=== PATIENT | female | born 1980 | race Caucasian/White ===

== ENCOUNTER 2017-07-18 20:19 | Emergency (ER) | payer MEDICAID ==
[~2017-07-18] VITALS: Ht 162.6 cm; Wt 98.0 kg
[~2017-07-18 20:19] MED LIST: ACET325T45 PO; ACET500C5 PO; AUG875 PO; BENZ100C70 PO; CARI350T PO; FLUT16SP17 NASAL; IBUP-1542 PO; IBUP800T25 PO; LORA-441 PO; LORA5SOL74 PO; ONDA4TAB8 PO; OSLT75C PO; PROM6.25 PO; SODI44SP11 NASAL; UDROBDM PO; VIC
[2017-07-18 20:22] VITALS: Ht 162.6 cm; Wt 98.0 kg
[2017-07-18] MEDS ORDERED: LIDOCAINE/MYLANTA 40 ML BTL PO STA (21:05)
[2017-07-18] MEDS ORDERED: ONDANSETRON (ODT) 4 MG TAB ODT STA (21:05)
[2017-07-18] MEDS ORDERED: FAMOTIDINE 20 MG TAB PO STA (21:05)
[2017-07-18 21:53] LABS: BASOPHILS % 0.2 % (0.0-2.0); EOSINOPHILS # 0.1 10^3/ul (0.0-0.5); EOSINOPHILS % 1.1 % (0.0-7.0); HEMATOCRIT 38.4 % (37.0-47.0); HEMOGLOBIN 12.8 g/dl (12.0-16.0); LYMPHOCYTES # 2.6 10^3/ul (0.8-2.9); LYMPHOCYTES % 31.9 % (15.0-51.0); MEAN CORPUSCULAR HEMOGLOBIN 29.7 pg (29.0-33.0); MEAN CORPUSCULAR HGB CONC 33.3 g/dl (32.0-37.0); MEAN CORPUSCULAR VOLUME 89.1 fl (82.0-101.0); MEAN PLATELET VOLUME 10.5 fl (7.4-10.4); MONOCYTE # 0.7 10^3/ul (0.3-0.9); NEUTROPHILS % 57.6 % (39.0-77.0); PLATELET COUNT 303 10^3/UL (140-415); RED BLOOD COUNT 4.31 10^6/ul (4.20-5.40); WHITE BLOOD COUNT 8.2 10^3/ul (4.8-10.8)
[2017-07-18 22:28] LABS: ALBUMIN 4.3 g/dl (3.3-4.9); ALBUMIN/GLOBULIN RATIO 1.43; BILIRUBIN,INDIRECT 0.6 mg/dl (0-1.1); BILIRUBIN,TOTAL 0.6 mg/dl (0.2-1.3); CREATININE 0.92 mg/dl (0.44-1.00); POTASSIUM 3.8 mmol/L (3.5-5.1); TOTAL PROTEIN 7.3 g/dl (6.1-8.1)
[2017-07-19 00:21] LABS: URINE BLOOD (Dip) POC 1+ (NEGATIVE)
[2017-07-19] MEDS ORDERED: FAMO-96 PO (00:51)
[2017-07-19] MEDS ORDERED: ONDA4TAB8 PO (01:02)
[2017-07-19 01:20] VITALS: BP 99/58; PULSE 70; RESP 15; TEMP 97.6
--- NOTE | 2017-07-19 21:19 | ERD ---
ER Documentation Chief Complaint Date/Time DATE: 07/19/17 TIME: 21:13 Chief Complaint upper abd painx 4 days, diarrhea, headache HPI This is a 36-year-old female presenting to emergency department with epigastric and right upper quadrant abdominal pain 4 days. Patient rates pain 6/10 and states pain is mainly in the epigastric region and right upper quadrant. Pain is nonradiating. No lower abdominal pain. No dysuria, hematuria, urinary frequency or urgency. Patient states she has had nausea however no vomiting. Patient's had mild diarrhea since yesterday. No black or tarry stools. No melena. No aggravating or relieving factors. Patient did not take any medications at home. Last menstrual period July 02, 2017. No past medical history. Patient has history of cholecystectomy and tonsillectomy ROS All systems reviewed and are negative except as per history of present illness. Medications Home Meds Active Scripts Ondansetron Hcl* (Zofran*) 4 Mg Tablet, 4 MG PO Q6H for NAUSEA AND/OR VOMITING, #10 TAB Prov:NAFISA GUERRERO NP 07/19/17 Famotidine* (Pepcid*) 20 Mg Tablet, 20 MG PO BID for 4 Days, TAB Prov:NAFISA GUERRERO NP 07/19/17 Ondansetron Hcl* (Zofran*) 4 Mg Tablet, 4 MG PO Q6H for NAUSEA AND/OR VOMITING, #30 TAB Prov:MARILIN MORALES PA-C 07/04/16 Acetaminophen* (Tylophen*) 500 Mg Capsule, 1 CAP PO Q6H Y for PAIN AND OR ELEVATED TEMP, #30 CAP Prov:MARILIN MROALES PA-C 07/04/16 Ibuprofen* (Motrin*) 600 Mg Tab, 600 MG PO Q6, #16 TAB Prov:ANIKET RYDER MD 07/01/16 Acetaminophen* (Tylophen*) 500 Mg Capsule, 1 CAP PO Q6H Y for PAIN AND OR ELEVATED TEMP, #20 CAP Prov:PARKER CUETO NP 05/28/16 Ibuprofen* (Motrin*) 600 Mg Tab, 600 MG PO Q6, #30 TAB Prov:LEO PAIGE PA-C 05/22/16 Sodium Chloride (Saline Nasal Lapel) 45 Ml Lapel, 2 SPRAYS NASAL Q2H Y for NASAL CONGESTION, #1 BOTTLE Prov:NORYPARKER X. RETAIL SOLAR ADVISOR 01/26/16 Benzonatate* (Tessalon Perle*) 100 Mg Capsule, 100 MG PO Q8H Y for COUGH, #30 CAP Prov:NORYPARKER Charli. RETAIL SOLAR ADVISOR 01/26/16 Oseltamivir Phosphate* (Tamiflu*) 75 Mg Capsule, 75 MG PO BID for 5 Days, CAP Prov:NORYPARKER X. RETAIL SOLAR ADVISOR 01/26/16 Ibuprofen* (Motrin*) 800 Mg Tab, 800 MG PO Q6H Y for PAIN AND OR ELEVATED TEMP, #30 TAB Prov:NORYPARKER X. RETAIL SOLAR ADVISOR 01/26/16 Acetaminophen* (Acetaminophen*) 325 Mg Tablet, 325 MG PO Q4H Y for PAIN AND OR ELEVATED TEMP, #30 TAB Prov:KYRIE RODRIGUEZ DO 12/23/15 Ibuprofen* (Ibuprofen*) 800 Mg Tablet, 800 MG PO Q8, #20 TAB Prov:KYRIE RODRIGUEZ DO 12/23/15 Promethazine w/Codeine* (Phenergan w/Codeine* Syrup) 5 Ml Syrup, 5 ML PO QHS Y for COUGH, #120 ML 0 Refills Prov:BETH MURRELL PA-C 12/22/15 Guaifenesin-Dextromethorphan* (Robitussin* DM) 100MG/10MG/5ML Syrup, 5 ML PO Q6H Y for COUGH, #240 ML 0 Refills Prov:BETH MURRELL PA-C 12/22/15 Fluticasone Propionate* (Fluticasone Propionate* Nasal) 50 Mcg/Lapel - 16 Gm Lapel.susp, 1 SPRAY NASAL BID, #1 BOTTLE 0 Refills TO EACH NOSTRIL Prov:BETH MURRELL PA-C 12/22/15 Amoxicillin-Clavulanate K* (Augmentin*) 875 Mg Tab, 875 MG PO BID, #14 TAB 0 Refills Prov:BETH MURRELL PA-C 12/22/15 Loratadine (Loratadine) 5 Mg/5 Ml Solution, 10 MG PO DAILY, #30 ML 0 Refills Prov:BETH MURRELL PA-C 12/22/15 Lorazepam* (Ativan*) 0.5 Mg Tablet, 0.5 MG PO Q8 for 3 Days Prov:ENID DE LEON PA-C 09/07/15 Ibuprofen* (Ibuprofen*) 800 Mg Tab, 800 MG PO Q6H Y for PAIN, #20 TAB Prov:ENID DE LEON PA-C 09/07/15 Ibuprofen* (Motrin*) 800 Mg Tab, 800 MG PO Q6, #30 TAB Prov:TERESITA PANG PA-C 09/04/15 Allergies Allergies: Coded Allergies: hydrocodone (Verified Allergy, Mild, rash, 07/01/16) codeine (Verified Allergy, Unknown, 07/01/16) PMhx/Soc Medical and Surgical Hx: pt denies Medical Hx History of Surgery: Yes (CHOLECYSTECTOMY, tonsillectomy) Anesthesia Reaction: No Hx Neurological Disorder: No Hx Respiratory Disorders: No Hx Cardiac Disorders: No Hx Psychiatric Problems: No Hx Miscellaneous Medical Probl: No Hx Alcohol Use: No Hx Substance Use: No Hx Tobacco Use: No Smoking Status: Never smoker Physical Exam Vitals Vital Signs Date Time Temp Pulse Resp B/P Pulse Ox O2 Delivery O2 Flow Rate FiO2 07/19/17 01:20 97.6 70 15 99/58 97 Room Air 07/18/17 20:22 99.1 83 20 114/63 100 Physical Exam Const: No acute distress, alert Head: Atraumatic Eyes: Normal Conjunctiva ENT: Normal External Ears, Nose and Mouth. Neck: Full range of motion..~ No meningismus. Resp: Clear to auscultation bilaterally. No wheezing, rhonchi or crackles. Cardio: Regular rate and rhythm, no murmurs Abd: Soft, non tender, non distended. Normal bowel sounds. Negative Chery sign. Negative rebound tenderness. Skin: No petechiae or rashes Back: No midline or flank tenderness Ext: No cyanosis, or edema Neur: Awake and alert Psych: Normal Mood and Affect Result Diagram: 07/18/17212207/18/172122 Results 24 hrs Laboratory Tests Test 07/18/17 21:23 07/19/17 00:27 White Blood Count 8.210^3/ul Red Blood Count 4.3110^6/ul Hemoglobin 12.8g/dl Hematocrit 38.4% Mean Corpuscular Volume 89.1fl Mean Corpuscular Hemoglobin 29.7pg Mean Corpuscular Hemoglobin Concent 33.3g/dl Red Cell Distribution Width 13.0% Platelet Count 37670^3/UL Mean Platelet Volume 10.5fl Neutrophils % 57.6% Lymphocytes % 31.9% Monocytes % 9.0% Eosinophils % 1.1% Basophils % 0.2% Nucleated Red Blood Cells % 0.0/100WBC Neutrophils # (Manual) 510^3/ul Lymphocytes # 2.610^3/ul Monocytes # 0.710^3/ul Eosinophils # 0.110^3/ul Basophils # 0.010^3/ul Nucleated Red Blood Cells # 0.010^3/ul Sodium Level 139mmol/L Potassium Level 3.8mmol/L Chloride Level 104mmol/L Carbon Dioxide Level 24mmol/L Anion Gap 15 Blood Urea Nitrogen 17mg/dl Creatinine 0.92mg/dl Glucose Level 94mg/dl Calcium Level 9.0mg/dl Total Bilirubin 0.6mg/dl Direct Bilirubin 0.00mg/dl Indirect Bilirubin 0.6mg/dl Aspartate Amino Transf (AST/SGOT) 27IU/L Alanine Aminotransferase (ALT/SGPT) 41IU/L Alkaline Phosphatase 83IU/L Total Protein 7.3g/dl Albumin 4.3g/dl Globulin 3.00g/dl Albumin/Globulin Ratio 1.43 Lipase 63U/L Bedside Urine pH (LAB) 6.5 Bedside Urine Protein (LAB) Negative Bedside Urine Glucose (UA) Negative Bedside Urine Ketones (LAB) Negative Bedside Urine Blood 1+ Bedside Urine Nitrite (LAB) Negative Bedside Urine Leukocyte Esterase (L Negative Current Medications Medications (Trade) Dose Ordered Sig/Yeni Route PRN Reason Start Time Stop Time Status Last Admin Dose Admin Famotidine (Pepcid) 20 mg ONCE STAT PO 07/18/17 21:05 07/18/17 21:07 DC 07/18/17 21:23 Miscellaneous Medication (Gi Cocktail (2)) 40 ml ONCE STAT PO 07/18/17 21:05 07/18/17 21:07 DC 07/18/17 21:23 Ondansetron HCl (Zofran Odt) 4 mg ONCE STAT ODT 07/18/17 21:05 07/18/17 21:07 DC 07/18/17 21:23 Procedures/MDM MDM: This is a 36-year-old female presenting to emergency department with epigastric and right upper quadrant abdominal pain 4 days. Patient has had nausea without vomiting. Patient also reports mild nonbloody diarrhea since yesterday. Patient given Pepcid, Zofran and GI cocktail on the ED. CBC and CMP are within normal limits. UA is negative for infection. Urine is negative. Upon reassessment, patient states pain has improved. Vital signs are stable. Patient appears appropriate for discharge home. Differential diagnosis includes but not limited to acute DC, pancreatitis, peptic ulcer disease, GERD, gastritis, cholecystitis, cholelithiasis, choledocholithiasis and gastroparesis and functional dyspepsia. I doubt acute DC due to patient's normal vital signs, patient denies chest pain , shortness of breath, difficulty breathing or heart palpitations. I doubt pancreatitis due to patient's normal lab results. Patient is appropriate for outpatient management and instructed to follow-up with primary care provider in the next 2-3 days for reassessment. Patient will be given prescription for Pepcid and Zofran. Return to ED for any high fever, chest pain, difficulty breathing, shortness breath, wheezing, vomiting, diarrhea , abdominal pain or any new or worsening symptoms. Patient verbalizes understanding. All questions answered at discharge. Departure Diagnosis: Primary Impression: Epigastric pain Condition: Stable Patient Instructions: Gerd (Adult), Epigastric Pain (Uncertain Cause) Referrals: [facility] YOU HAVE RECEIVED A MEDICAL SCREENING EXAM AND THE RESULTS INDICATE THAT YOU DO NOT HAVE A CONDITION THAT REQUIRES URGENT TREATMENT IN THE EMERGENCY DEPARTMENT. FURTHER EVALUATION AND TREATMENT OF YOUR CONDITION CAN WAIT UNTIL YOU ARE SEEN IN YOUR DOCTORS OFFICE WITHIN THE NEXT 1-2 DAYS. IT IS YOUR RESPONSIBILITY TO MAKE AN APPOINTMENT FOR FOLOW-UP CARE. IF YOU HAVE A PRIMARY DOCTOR --you should call your primary doctor and schedule an appointment IF YOU DO NOT HAVE A PRIMARY DOCTOR YOU CAN CALL OUR PHYSICIAN REFERRAL HOTLINE AT IF YOU CAN NOT AFFORD TO SEE A PHYSICIAN YOU CAN CHOSE FROM THE FOLLOWING [facility] [address] [facility] [address] [facility]. [facility] [address] [facility] [address] [facility] [address] [facility]. [facility] [address] [facility]. [facility] YOU HAVE RECEIVED A MEDICAL SCREENING EXAM AND THE RESULTS INDICATE THAT YOU DO NOT HAVE A CONDITION THAT REQUIRES URGENT TREATMENT IN THE EMERGENCY DEPARTMENT. FURTHER EVALUATION AND TREATMENT OF YOUR CONDITION CAN WAIT UNTIL YOU ARE SEEN IN YOUR DOCTORS OFFICE WITHIN THE NEXT 1-2 DAYS. IT IS YOUR RESPONSIBILITY TO MAKE AN APPOINTMENT FOR FOLOW-UP CARE. IF YOU HAVE A PRIMARY DOCTOR --you should call your primary doctor and schedule and appointment IF YOU DO NOT HAVE A PRIMARY DOCTOR YOU CAN CALL OUR PHYSICIAN REFERRAL HOTLINE AT . IF YOU CAN NOT AFFORD TO SEE A PHYSICIAN YOU CAN CHOSE FROM THE FOLLOWING [facility] INSTITUTIONS: [facility] [address] [place] [address] [facility] [address] [place] [address] [facility] [address] [place] [address] Additional Instructions: Llame al doctor MAANA y grover lindsey JANNET PARA DENTRO DE 2-3 LYNCH.Dgale a la secretaria que nosotros le instruimos hacer esta jannet.Avise o llame si irving condicin se empeora antes de la jannet. Regresa aqui si peor o no mejor. Regresar a ED por fiebre saroj, dolor en el pecho, dificultad para respirar, respiracin entrecortada, sibilancias, vmitos, diarrea, dolor abdominal o cualquier sntoma nuevo o que empeora. NAFISA GUERRERO NP Jul 19, 2017 21:19
[2017-07-26] MEDS ORDERED: IBUP800T25 PO (20:32)
[2017-07-26] MEDS ORDERED: TRAM50TA2 PO (20:32)
== END 2017-07-19 01:21 | disposition home or self-care (01) ==
LOC: FTE 20:19
DX: R10.13 Epigastric pain (principal); R11.0 Nausea
CPT/HCPCS: 36415; 80053; 81003; 83690; 85025; Z7502; Z7610; 99283

== ENCOUNTER 2017-09-10 18:05 | Emergency (ER) | payer MEDICAID ==
[~2017-09-10] VITALS: Wt 80.0 kg
[~2017-09-10 18:05] MED LIST changes: -CARI350T PO; +FAMO-96 PO; +TRAM50TA2 PO; -VIC
[2017-09-10] MEDS ORDERED: NAPR-260 PO (20:28)
[2017-09-10] MEDS ORDERED: BEN50 PO (20:28)
[2017-09-10 20:38] VITALS: BP 133/81; PULSE 81; RESP 18; TEMP 98.2
--- NOTE | 2017-09-10 20:48 | ERD ---
ER Documentation Chief Complaint Date/Time DATE: 09/10/17 TIME: 20:45 Chief Complaint right foot /heel pain HPI Patient is a 36-year-old female presenting to the emergency department with complaints of right foot and heel pain ongoing intermittently for the past 5 days. She states it is worse when she goes to the gym and uses the elliptical. Pain. She denies trauma or other injuries. Additionally she does mention that she has difficulty sleeping at night and she often finds that it takes her 3-4 hours to fall asleep every night. She denies any anxiety symptoms. She has taken no medication for relief of symptoms. She denies fevers, chills, or other symptoms at this time. ROS All systems reviewed and are negative except as per history of present illness. Medications Home Meds Active Scripts Naproxen* (Naprosyn*) 500 Mg Tablet, 500 MG PO BID Y for PAIN AND/OR INFLAMMATION, #30 TAB Prov:KEENAN GARDINER PA-C 09/10/17 Diphenhydramine Hcl* (Benadryl*) 50 Mg Cap, 50 MG PO QHS Y for INSOMNIA, #30 CAP Prov:KEENAN GARDINER PA-C 09/10/17 Tramadol HCl (Tramadol HCl) 50 Mg Tablet, 50 MG PO Q4 Y for PAIN, #20 TAB Prov:YULIANA CHRISTENSEN PA-C 07/26/17 Ibuprofen* (Motrin*) 800 Mg Tab, 800 MG PO Q6, #30 TAB Prov:YULIANA CHRISTENSEN PA-C 07/26/17 Ondansetron Hcl* (Zofran*) 4 Mg Tablet, 4 MG PO Q6H for NAUSEA AND/OR VOMITING, #10 TAB Prov:NAFISA GUERRERO NP 07/19/17 Famotidine* (Pepcid*) 20 Mg Tablet, 20 MG PO BID for 4 Days, TAB Prov:NAFISA GUERRERO NP 07/19/17 Ondansetron Hcl* (Zofran*) 4 Mg Tablet, 4 MG PO Q6H for NAUSEA AND/OR VOMITING, #30 TAB Prov:MARILIN MORALES PA-C 07/04/16 Acetaminophen* (Tylophen*) 500 Mg Capsule, 1 CAP PO Q6H Y for PAIN AND OR ELEVATED TEMP, #30 CAP Prov:MARILIN MORALES PA-C 07/04/16 Ibuprofen* (Motrin*) 600 Mg Tab, 600 MG PO Q6, #16 TAB Prov:ANIKET RYDER MD 07/01/16 Acetaminophen* (Tylophen*) 500 Mg Capsule, 1 CAP PO Q6H Y for PAIN AND OR ELEVATED TEMP, #20 CAP Prov:PARKER CUETO EXTENSION COURSE COORDINATOR 05/28/16 Ibuprofen* (Motrin*) 600 Mg Tab, 600 MG PO Q6, #30 TAB Prov:LEO PAIGE PA-C 05/22/16 Sodium Chloride (Saline Nasal Radisson) 45 Ml Radisson, 2 SPRAYS NASAL Q2H Y for NASAL CONGESTION, #1 BOTTLE Prov:PARKER CUETO. EXTENSION COURSE COORDINATOR 01/26/16 Benzonatate* (Tessalon Perle*) 100 Mg Capsule, 100 MG PO Q8H Y for COUGH, #30 CAP Prov:PARKER CUETO. HAO 01/26/16 Oseltamivir Phosphate* (Tamiflu*) 75 Mg Capsule, 75 MG PO BID for 5 Days, CAP Prov:PARKER CUETO. EXTENSION COURSE COORDINATOR 01/26/16 Ibuprofen* (Motrin*) 800 Mg Tab, 800 MG PO Q6H Y for PAIN AND OR ELEVATED TEMP, #30 TAB Prov:PARKER CUETO. EXTENSION COURSE COORDINATOR 01/26/16 Acetaminophen* (Acetaminophen*) 325 Mg Tablet, 325 MG PO Q4H Y for PAIN AND OR ELEVATED TEMP, #30 TAB Prov:KYRIE RODRIGUEZ DO 12/23/15 Ibuprofen* (Ibuprofen*) 800 Mg Tablet, 800 MG PO Q8, #20 TAB Prov:KYRIE RODRIGUEZ DO 12/23/15 Promethazine w/Codeine* (Phenergan w/Codeine* Syrup) 5 Ml Syrup, 5 ML PO QHS Y for COUGH, #120 ML 0 Refills Prov:BETH MURRELL PA-C 12/22/15 Guaifenesin-Dextromethorphan* (Robitussin* DM) 100MG/10MG/5ML Syrup, 5 ML PO Q6H Y for COUGH, #240 ML 0 Refills Prov:BETH MURRELL PA-C 12/22/15 Fluticasone Propionate* (Fluticasone Propionate* Nasal) 50 Mcg/Radisson - 16 Gm Radisson.susp, 1 SPRAY NASAL BID, #1 BOTTLE 0 Refills TO EACH NOSTRIL Prov:BETH MURRELL PA-C 12/22/15 Amoxicillin-Clavulanate K* (Augmentin*) 875 Mg Tab, 875 MG PO BID, #14 TAB 0 Refills Prov:BETH MURRELL PA-C 12/22/15 Loratadine (Loratadine) 5 Mg/5 Ml Solution, 10 MG PO DAILY, #30 ML 0 Refills Prov:BETH MURRELL PA-C 12/22/15 Lorazepam* (Ativan*) 0.5 Mg Tablet, 0.5 MG PO Q8 for 3 Days Prov:ENID DE LEON PA-C 09/07/15 Ibuprofen* (Ibuprofen*) 800 Mg Tab, 800 MG PO Q6H Y for PAIN, #20 TAB Prov:ENID DE LEON PA-C 09/07/15 Ibuprofen* (Motrin*) 800 Mg Tab, 800 MG PO Q6, #30 TAB Prov:TERESITA PANG PA-C 09/04/15 Allergies Allergies: Coded Allergies: hydrocodone (Verified Allergy, Mild, rash, 07/01/16) codeine (Verified Allergy, Unknown, 07/01/16) PMhx/Soc History of Surgery: Yes (CHOLECYSTECTOMY, tonsillectomy) Anesthesia Reaction: No Hx Neurological Disorder: No Hx Respiratory Disorders: No Hx Cardiac Disorders: No Hx Psychiatric Problems: No Hx Miscellaneous Medical Probl: No Hx Alcohol Use: No Hx Substance Use: No Hx Tobacco Use: No Smoking Status: Never smoker Physical Exam Vitals Vital Signs Date Time Temp Pulse Resp B/P Pulse Ox O2 Delivery O2 Flow Rate FiO2 09/10/17 20:38 98.2 81 18 133/81 97 Room Air 09/10/17 18:11 98.1 80 18 126/73 99 Physical Exam Const: Onset, well-appearing female in no acute distress. Head: Atraumatic Eyes: Normal Conjunctiva ENT: Normal External Ears, Nose and Mouth. Ext: Objective tenderness palpation of the right heel. No warmth, erythema, the patient has full range of motion of the ankle of the right lower extremity. Neur: Awake and alert Psych: Normal Mood and Affect Procedures/MDM 36-year-old female presents to the emergency department for right heel pain and insomnia. The patient denies any anxiety. History and physical examination is consistent with heel spur versus plantar fasciitis. The patient is stable for outpatient management with a prescription for naproxen for heel pain. She was also given a prescription for Benadryl 50 mg to be taken 30 minutes before bedtime as needed for insomnia. The patient is to return immediately for any new or worsening symptoms. She was advised to have close follow-up with primary care physician within the next 1-2 days. Departure Diagnosis: Primary Impression: Heel pain Laterality: right Qualified Code: M79.671 - Pain of right heel Additional Impression: Insomnia Insomnia type: unspecified Qualified Code: G47.00 - Insomnia, unspecified type Condition: Fair Patient Instructions: Understanding Heel Pain, Treating Insomnia [facility]: [facility] se andrews hecho un examen mdico de control que le indica que no est en lindsey condicin que requiera tratamiento urgente en el Departamento de Emergencia. Un estudio ms profundo y el tratamiento de irving condicin pueden esperar sin ningn riesgo hasta que usted sea atendida/o en el consultorio de irving mdico o lindsey cl andres. Es responsabilidad suya arreglar lindsey ryan para el seguimiento del aaron. MANEJO DE CONDICIONES NO URGENTES EN EL FUTURO 1) Si usted tiene un mdico de atencin primaria: Usted debera llamar a irving mdico de atencin primaria antes de venir al departamento de emergencia. Despus de las horas de consultorio, irving doctor o irving asociado/a est disponible por telfono. El mdico o enfermero de lalo en el servicio telefnico puede asesorarle por ren medio para atender el problema, o aaron contrario se puede programar lindsey ryan. 2) Si usted no tiene un mdico de atencin primaria: Llame al mdico o clnica de referencia que aparece abajo agus las horas de consultorio para hacer lindsey ryan para que le vean. CLINICAS: [facility] [phone] [facility] [phone] [facility] [phone] [facility] [phone] [facility] [phone] [address] [facility] [phone] [address] Additional Instructions: No mas mejor en 2-3 yates, regresar. Mas peor en 24 horas, regresear rapidamente. Ir a doctor primario in 5-7 yates. Usar instrucciones cuando miguel medicamento. KEENAN GARDINER PA-C Sep 10, 2017 20:48
== END 2017-09-10 20:39 | disposition home or self-care (01) ==
LOC: FTE 18:05
DX: M79.671 Pain in right foot (principal); G47.00 Insomnia, unspecified
CPT/HCPCS: 99283

== ENCOUNTER 2017-09-25 18:38 | Emergency (ER) | payer MEDICAID ==
[~2017-09-25] VITALS: Ht 165.1 cm; Wt 97.5 kg
[~2017-09-25 18:38] MED LIST changes: +BEN50 PO; +NAPR-260 PO
[2017-09-25 19:15] VITALS: Ht 165.1 cm; Wt 97.5 kg
--- NOTE | 2017-09-25 20:44 | ERD ---
ER Documentation Chief Complaint Chief Complaint rt foot pain s/p injury at gym 3 weeks ago. No relief w/pain med. HPI 37-year-old female presents to emergency department for complaints of right foot pain after twisting it while running in the treadmill 3 weeks ago. Patient felt a crack in her bones. Patient is complaining of pain throbbing pain, 6/10 scale, worse upon movement. Patient did not take any medications to help with symptoms. Patient denies any deformity. ROS All systems reviewed and are negative except as per history of present illness. Medications Home Meds Active Scripts Naproxen* (Naprosyn*) 500 Mg Tablet, 500 MG PO BID Y for PAIN AND/OR INFLAMMATION, #30 TAB Prov:KEENAN GARDINER PA-C 09/10/17 Diphenhydramine Hcl* (Benadryl*) 50 Mg Cap, 50 MG PO QHS Y for INSOMNIA, #30 CAP Prov:KEENAN GARDINER PA-C 09/10/17 Tramadol HCl (Tramadol HCl) 50 Mg Tablet, 50 MG PO Q4 Y for PAIN, #20 TAB Prov:YULIANA CHRISTENSEN PA-C 07/26/17 Ibuprofen* (Motrin*) 800 Mg Tab, 800 MG PO Q6, #30 TAB Prov:YULIANA CHRISTENSEN PA-C 07/26/17 Ondansetron Hcl* (Zofran*) 4 Mg Tablet, 4 MG PO Q6H for NAUSEA AND/OR VOMITING, #10 TAB Prov:NAFISA GUERRERO NP 07/19/17 Famotidine* (Pepcid*) 20 Mg Tablet, 20 MG PO BID for 4 Days, TAB Prov:NAFISA GUERRERO NP 07/19/17 Ondansetron Hcl* (Zofran*) 4 Mg Tablet, 4 MG PO Q6H for NAUSEA AND/OR VOMITING, #30 TAB Prov:MARILIN MORALES PA-C 07/04/16 Acetaminophen* (Tylophen*) 500 Mg Capsule, 1 CAP PO Q6H Y for PAIN AND OR ELEVATED TEMP, #30 CAP Prov:MARILIN MORALES PA-C 07/04/16 Ibuprofen* (Motrin*) 600 Mg Tab, 600 MG PO Q6, #16 TAB Prov:ANIKET RYDER MD 07/01/16 Acetaminophen* (Tylophen*) 500 Mg Capsule, 1 CAP PO Q6H Y for PAIN AND OR ELEVATED TEMP, #20 CAP Prov:PARKER CUETO [facility] 05/28/16 Ibuprofen* (Motrin*) 600 Mg Tab, 600 MG PO Q6, #30 TAB Prov:LEO PAIGE PA-C 05/22/16 Sodium Chloride (Saline Nasal [place]) 45 Ml [place], 2 SPRAYS NASAL Q2H Y for NASAL CONGESTION, #1 BOTTLE Prov:PARKER CUETO [facility] 01/26/16 Benzonatate* (Tessalon Perle*) 100 Mg Capsule, 100 MG PO Q8H Y for COUGH, #30 CAP Prov:PARKER CUETO [facility] 01/26/16 Oseltamivir Phosphate* (Tamiflu*) 75 Mg Capsule, 75 MG PO BID for 5 Days, CAP Prov:PARKER CUETO [facility] 01/26/16 Ibuprofen* (Motrin*) 800 Mg Tab, 800 MG PO Q6H Y for PAIN AND OR ELEVATED TEMP, #30 TAB Prov:PARKER CUETO [facility] 01/26/16 Acetaminophen* (Acetaminophen*) 325 Mg Tablet, 325 MG PO Q4H Y for PAIN AND OR ELEVATED TEMP, #30 TAB Prov:KYRIE RODRIGUEZ DO 12/23/15 Ibuprofen* (Ibuprofen*) 800 Mg Tablet, 800 MG PO Q8, #20 TAB Prov:KYRIE RODRIGUEZ DO 12/23/15 Promethazine w/Codeine* (Phenergan w/Codeine* Syrup) 5 Ml Syrup, 5 ML PO QHS Y for COUGH, #120 ML 0 Refills Prov:BETH MURRELL PA-C 12/22/15 Guaifenesin-Dextromethorphan* (Robitussin* DM) 100MG/10MG/5ML Syrup, 5 ML PO Q6H Y for COUGH, #240 ML 0 Refills Prov:BETH MURRELL PA-C 12/22/15 Fluticasone Propionate* (Fluticasone Propionate* Nasal) 50 Mcg/[place] - 16 Gm [place].susp, 1 SPRAY NASAL BID, #1 BOTTLE 0 Refills TO EACH NOSTRIL Prov:BETH MURRELL PA-C 12/22/15 Amoxicillin-Clavulanate K* (Augmentin*) 875 Mg Tab, 875 MG PO BID, #14 TAB 0 Refills Prov:NYASIABETH PA-C 12/22/15 Loratadine (Loratadine) 5 Mg/5 Ml Solution, 10 MG PO DAILY, #30 ML 0 Refills Prov:NYASIABETH KERN 12/22/15 Lorazepam* (Ativan*) 0.5 Mg Tablet, 0.5 MG PO Q8 for 3 Days Prov:ENID DE LEON PA-C 09/07/15 Ibuprofen* (Ibuprofen*) 800 Mg Tab, 800 MG PO Q6H Y for PAIN, #20 TAB Prov:ENID DE LEON PA-C 09/07/15 Ibuprofen* (Motrin*) 800 Mg Tab, 800 MG PO Q6, #30 TAB Prov:TERESITA PANG PA-C 09/04/15 Allergies Allergies: Coded Allergies: hydrocodone (Verified Allergy, Mild, rash, 09/25/17) codeine (Verified Allergy, Unknown, 09/25/17) PMhx/Soc Medical and Surgical Hx: pt denies Medical Hx History of Surgery: Yes (CHOLECYSTECTOMY, tonsillectomy) Anesthesia Reaction: No Hx Neurological Disorder: No Hx Respiratory Disorders: No Hx Cardiac Disorders: No Hx Psychiatric Problems: No Hx Miscellaneous Medical Probl: No Hx Alcohol Use: No Hx Substance Use: No Hx Tobacco Use: No Smoking Status: Never smoker FmHx Family History: No coronary disease, No diabetes, No other Physical Exam Vitals Vital Signs Date Time Temp Pulse Resp B/P Pulse Ox O2 Delivery O2 Flow Rate FiO2 09/25/17 19:15 98.0 86 18 115/69 99 Physical Exam GENERAL: The patient is well developed and appropriate for usual state of health, in no apparent distress. CHEST: Clear to auscultation bilaterally. There are no rales, wheezes or rhonchi. HEART: Regular rate and rhythm. No murmurs, clicks, rubs or gallops. No S3 or S4. ABDOMEN: Soft, nontender and nondistended. Good bowel sounds. No rebound or guarding. No gross peritonitis. No gross organomegaly or masses. No Chery sign or McBurney point tenderness. BACK: No midline or flank tenderness. EXTREMITIES: Tenderness on palpation on the calcaneus of the right foot, no swelling noted, no deformity noted. Able to do full range of motion of the right ankle and bones of the right foot without any restriction. Equal pulses bilaterally. There is no peripheral clubbing, cyanosis or edema. No focal swelling or erythema. Full range of motion. Grossly neurovascularly intact. NEURO: Alert and oriented. Cranial nerves 2-12 intact. Motor strength in all 4 extremities with 5/5 strength. Sensation grossly intact. Normal speech and gait. SKIN: There is no apparent rash or petechia. The skin is warm and dry. HEMATOLOGIC AND LYMPHATIC: There is no evidence of excessive bruising or lymphedema. No gross cervical, axillary, or inguinal lymphadenopathy. Results 24 hrs PROCEDURE: XR Right Foot. CLINICAL INDICATION: Trauma. Right foot pain. TECHNIQUE: 3 views. Frontal, lateral, and oblique. COMPARISON: None. FINDINGS: There is no fracture or dislocation. The soft tissues are normal. Articular surfaces are intact. There is no lytic or blastic lesion. There is no radiopaque foreign body. IMPRESSION: 1. Normal images of the right foot. RPTAT: QQ .Aniket Omalley MD, MD Date Time Electronically viewed and signed by .Aniket Omalley MD, MD on 09/25/2017 21:21 .R/ CC: DICKSON BIRD [facility] Procedures/MDM Medical Decision Making: Patient's pain is most likely consistent with a contusion or a sprain. There is no suspicion for neurovascular compromise. Patient has intact sensation and circulation of the affected extremity. There is low suspicion for septic arthritis. Patient does not have any fever. Radiology exams of the affected area does not show any fracture or dislocation. Disposition: Home. Patient is given prescription for ibuprofen for pain, Tramadol for severe pain. Patient was advised to elevate the affected area and apply ice on affected area. Patient was advised that if symptoms are worse, numbness, tingling, high fever, unable to move joint, worsening symptoms, to return to emergency department immediately. Otherwise, patient is advised to follow up with the primary care doctor in 5-7 days for reevaluation of symptoms. Disclaimer: Inadvertent spelling and grammatical errors are likely due to EHR/ dictation software use and do not reflect on the overall quality of patient care. Also, please note that the electronic time recorded on this note does not necessarily reflect the actual time of the patient encounter. Departure Diagnosis: Primary Impression: Foot pain Laterality: right Qualified Code: M79.671 - Right foot pain Condition: Stable Patient Instructions: Sprain Foot Additional Instructions: Patient is given prescription for ibuprofen for pain, Tramadol for severe pain. Patient was advised to elevate the affected area and apply ice on affected area. Patient was advised that if symptoms are worse, numbness, tingling, high fever, unable to move joint, worsening symptoms, to return to emergency department immediately. Otherwise, patient is advised to follow up with the primary care doctor in 5-7 days for reevaluation of symptoms. DICKSON BIRD NP Sep 25, 2017 20:44
--- NOTE | 2017-09-25 20:44 | ERD ---
ER Documentation Chief Complaint Chief Complaint rt foot pain s/p injury at gym 3 weeks ago. No relief w/pain med. HPI 37-year-old female presents to emergency department for complaints of right foot pain after twisting it while running in the treadmill 3 weeks ago. Patient felt a crack in her bones. Patient is complaining of pain throbbing pain, 6/10 scale, worse upon movement. Patient did not take any medications to help with symptoms. Patient denies any deformity. ROS All systems reviewed and are negative except as per history of present illness. Medications Home Meds Active Scripts Naproxen* (Naprosyn*) 500 Mg Tablet, 500 MG PO BID Y for PAIN AND/OR INFLAMMATION, #30 TAB Prov:KEENAN GARDINER PA-C 09/10/17 Diphenhydramine Hcl* (Benadryl*) 50 Mg Cap, 50 MG PO QHS Y for INSOMNIA, #30 CAP Prov:KEENAN GARDINER PA-C 09/10/17 Tramadol HCl (Tramadol HCl) 50 Mg Tablet, 50 MG PO Q4 Y for PAIN, #20 TAB Prov:YULIANA CHRISTENSEN PA-C 07/26/17 Ibuprofen* (Motrin*) 800 Mg Tab, 800 MG PO Q6, #30 TAB Prov:YULIANA CHRISTENSEN PA-C 07/26/17 Ondansetron Hcl* (Zofran*) 4 Mg Tablet, 4 MG PO Q6H for NAUSEA AND/OR VOMITING, #10 TAB Prov:NAFISA GUERRERO NP 07/19/17 Famotidine* (Pepcid*) 20 Mg Tablet, 20 MG PO BID for 4 Days, TAB Prov:NAFISA GUERRERO NP 07/19/17 Ondansetron Hcl* (Zofran*) 4 Mg Tablet, 4 MG PO Q6H for NAUSEA AND/OR VOMITING, #30 TAB Prov:MARILIN MORALES PA-C 07/04/16 Acetaminophen* (Tylophen*) 500 Mg Capsule, 1 CAP PO Q6H Y for PAIN AND OR ELEVATED TEMP, #30 CAP Prov:MARILIN MORALES PA-C 07/04/16 Ibuprofen* (Motrin*) 600 Mg Tab, 600 MG PO Q6, #16 TAB Prov:ANIKET RYDER MD 07/01/16 Acetaminophen* (Tylophen*) 500 Mg Capsule, 1 CAP PO Q6H Y for PAIN AND OR ELEVATED TEMP, #20 CAP Prov:PARKER CUETO [employer] 05/28/16 Ibuprofen* (Motrin*) 600 Mg Tab, 600 MG PO Q6, #30 TAB Prov:LEO PAIGE PA-C 05/22/16 Sodium Chloride (Saline Nasal [place]) 45 Ml [place], 2 SPRAYS NASAL Q2H Y for NASAL CONGESTION, #1 BOTTLE Prov:PARKER CUETO [employer] 01/26/16 Benzonatate* (Tessalon Perle*) 100 Mg Capsule, 100 MG PO Q8H Y for COUGH, #30 CAP Prov:PARKER CUETO [employer] 01/26/16 Oseltamivir Phosphate* (Tamiflu*) 75 Mg Capsule, 75 MG PO BID for 5 Days, CAP Prov:PARKER CUETO [employer] 01/26/16 Ibuprofen* (Motrin*) 800 Mg Tab, 800 MG PO Q6H Y for PAIN AND OR ELEVATED TEMP, #30 TAB Prov:PARKER CUETO [employer] 01/26/16 Acetaminophen* (Acetaminophen*) 325 Mg Tablet, 325 MG PO Q4H Y for PAIN AND OR ELEVATED TEMP, #30 TAB Prov:KYRIE RODRIGUEZ DO 12/23/15 Ibuprofen* (Ibuprofen*) 800 Mg Tablet, 800 MG PO Q8, #20 TAB Prov:KYRIE RODRIGUEZ DO 12/23/15 Promethazine w/Codeine* (Phenergan w/Codeine* Syrup) 5 Ml Syrup, 5 ML PO QHS Y for COUGH, #120 ML 0 Refills Prov:BETH MURRELL PA-C 12/22/15 Guaifenesin-Dextromethorphan* (Robitussin* DM) 100MG/10MG/5ML Syrup, 5 ML PO Q6H Y for COUGH, #240 ML 0 Refills Prov:BETH MURRELL PA-C 12/22/15 Fluticasone Propionate* (Fluticasone Propionate* Nasal) 50 Mcg/[place] - 16 Gm [place].susp, 1 SPRAY NASAL BID, #1 BOTTLE 0 Refills TO EACH NOSTRIL Prov:BETH MURRELL PA-C 12/22/15 Amoxicillin-Clavulanate K* (Augmentin*) 875 Mg Tab, 875 MG PO BID, #14 TAB 0 Refills Prov:NYASIABETH PA-C 12/22/15 Loratadine (Loratadine) 5 Mg/5 Ml Solution, 10 MG PO DAILY, #30 ML 0 Refills Prov:NYASIABETH KERN 12/22/15 Lorazepam* (Ativan*) 0.5 Mg Tablet, 0.5 MG PO Q8 for 3 Days Prov:ENID DE LEON PA-C 09/07/15 Ibuprofen* (Ibuprofen*) 800 Mg Tab, 800 MG PO Q6H Y for PAIN, #20 TAB Prov:ENID DE LEON PA-C 09/07/15 Ibuprofen* (Motrin*) 800 Mg Tab, 800 MG PO Q6, #30 TAB Prov:TERESITA PANG PA-C 09/04/15 Allergies Allergies: Coded Allergies: hydrocodone (Verified Allergy, Mild, rash, 09/25/17) codeine (Verified Allergy, Unknown, 09/25/17) PMhx/Soc Medical and Surgical Hx: pt denies Medical Hx History of Surgery: Yes (CHOLECYSTECTOMY, tonsillectomy) Anesthesia Reaction: No Hx Neurological Disorder: No Hx Respiratory Disorders: No Hx Cardiac Disorders: No Hx Psychiatric Problems: No Hx Miscellaneous Medical Probl: No Hx Alcohol Use: No Hx Substance Use: No Hx Tobacco Use: No Smoking Status: Never smoker FmHx Family History: No coronary disease, No diabetes, No other Physical Exam Vitals Vital Signs Date Time Temp Pulse Resp B/P Pulse Ox O2 Delivery O2 Flow Rate FiO2 09/25/17 19:15 98.0 86 18 115/69 99 Physical Exam GENERAL: The patient is well developed and appropriate for usual state of health, in no apparent distress. CHEST: Clear to auscultation bilaterally. There are no rales, wheezes or rhonchi. HEART: Regular rate and rhythm. No murmurs, clicks, rubs or gallops. No S3 or S4. ABDOMEN: Soft, nontender and nondistended. Good bowel sounds. No rebound or guarding. No gross peritonitis. No gross organomegaly or masses. No Chery sign or McBurney point tenderness. BACK: No midline or flank tenderness. EXTREMITIES: Tenderness on palpation on the calcaneus of the right foot, no swelling noted, no deformity noted. Able to do full range of motion of the right ankle and bones of the right foot without any restriction. Equal pulses bilaterally. There is no peripheral clubbing, cyanosis or edema. No focal swelling or erythema. Full range of motion. Grossly neurovascularly intact. NEURO: Alert and oriented. Cranial nerves 2-12 intact. Motor strength in all 4 extremities with 5/5 strength. Sensation grossly intact. Normal speech and gait. SKIN: There is no apparent rash or petechia. The skin is warm and dry. HEMATOLOGIC AND LYMPHATIC: There is no evidence of excessive bruising or lymphedema. No gross cervical, axillary, or inguinal lymphadenopathy. Results 24 hrs PROCEDURE: XR Right Foot. CLINICAL INDICATION: Trauma. Right foot pain. TECHNIQUE: 3 views. Frontal, lateral, and oblique. COMPARISON: None. FINDINGS: There is no fracture or dislocation. The soft tissues are normal. Articular surfaces are intact. There is no lytic or blastic lesion. There is no radiopaque foreign body. IMPRESSION: 1. Normal images of the right foot. RPTAT: QQ .Aniket Omalley MD, MD Date Time Electronically viewed and signed by .Aniket Omalley MD, MD on 09/25/2017 21:21 .R/ CC: DICKSON BIRD [employer] Procedures/MDM Medical Decision Making: Patient's pain is most likely consistent with a contusion or a sprain. There is no suspicion for neurovascular compromise. Patient has intact sensation and circulation of the affected extremity. There is low suspicion for septic arthritis. Patient does not have any fever. Radiology exams of the affected area does not show any fracture or dislocation. Disposition: Home. Patient is given prescription for ibuprofen for pain, Tramadol for severe pain. Patient was advised to elevate the affected area and apply ice on affected area. Patient was advised that if symptoms are worse, numbness, tingling, high fever, unable to move joint, worsening symptoms, to return to emergency department immediately. Otherwise, patient is advised to follow up with the primary care doctor in 5-7 days for reevaluation of symptoms. Disclaimer: Inadvertent spelling and grammatical errors are likely due to EHR/ dictation software use and do not reflect on the overall quality of patient care. Also, please note that the electronic time recorded on this note does not necessarily reflect the actual time of the patient encounter. Departure Diagnosis: Primary Impression: Foot pain Laterality: right Qualified Code: M79.671 - Right foot pain Condition: Stable Patient Instructions: Sprain Foot Additional Instructions: Patient is given prescription for ibuprofen for pain, Tramadol for severe pain. Patient was advised to elevate the affected area and apply ice on affected area. Patient was advised that if symptoms are worse, numbness, tingling, high fever, unable to move joint, worsening symptoms, to return to emergency department immediately. Otherwise, patient is advised to follow up with the primary care doctor in 5-7 days for reevaluation of symptoms. DICKSON BIRD NP Sep 25, 2017 20:44
--- NOTE | 2017-09-25 20:44 | ERD ---
ER Documentation Chief Complaint Chief Complaint rt foot pain s/p injury at gym 3 weeks ago. No relief w/pain med. HPI 37-year-old female presents to emergency department for complaints of right foot pain after twisting it while running in the treadmill 3 weeks ago. Patient felt a crack in her bones. Patient is complaining of pain throbbing pain, 6/10 scale, worse upon movement. Patient did not take any medications to help with symptoms. Patient denies any deformity. ROS All systems reviewed and are negative except as per history of present illness. Medications Home Meds Active Scripts Naproxen* (Naprosyn*) 500 Mg Tablet, 500 MG PO BID Y for PAIN AND/OR INFLAMMATION, #30 TAB Prov:KEENAN GARDINER PA-C 09/10/17 Diphenhydramine Hcl* (Benadryl*) 50 Mg Cap, 50 MG PO QHS Y for INSOMNIA, #30 CAP Prov:KEENAN GARDINER PA-C 09/10/17 Tramadol HCl (Tramadol HCl) 50 Mg Tablet, 50 MG PO Q4 Y for PAIN, #20 TAB Prov:YULIANA CHRISTENSEN PA-C 07/26/17 Ibuprofen* (Motrin*) 800 Mg Tab, 800 MG PO Q6, #30 TAB Prov:YULIANA CHRISTENSEN PA-C 07/26/17 Ondansetron Hcl* (Zofran*) 4 Mg Tablet, 4 MG PO Q6H for NAUSEA AND/OR VOMITING, #10 TAB Prov:NAFISA GUERRERO NP 07/19/17 Famotidine* (Pepcid*) 20 Mg Tablet, 20 MG PO BID for 4 Days, TAB Prov:NAFISA GUERRERO NP 07/19/17 Ondansetron Hcl* (Zofran*) 4 Mg Tablet, 4 MG PO Q6H for NAUSEA AND/OR VOMITING, #30 TAB Prov:MARILIN MORALES PA-C 07/04/16 Acetaminophen* (Tylophen*) 500 Mg Capsule, 1 CAP PO Q6H Y for PAIN AND OR ELEVATED TEMP, #30 CAP Prov:MARILIN MORALES PA-C 07/04/16 Ibuprofen* (Motrin*) 600 Mg Tab, 600 MG PO Q6, #16 TAB Prov:ANIKET RYDER MD 07/01/16 Acetaminophen* (Tylophen*) 500 Mg Capsule, 1 CAP PO Q6H Y for PAIN AND OR ELEVATED TEMP, #20 CAP Prov:PARKER CUETO PHONOGRAPH MECHANIC 05/28/16 Ibuprofen* (Motrin*) 600 Mg Tab, 600 MG PO Q6, #30 TAB Prov:LEO PAIGE PA-C 05/22/16 Sodium Chloride (Saline Nasal [place]) 45 Ml [place], 2 SPRAYS NASAL Q2H Y for NASAL CONGESTION, #1 BOTTLE Prov:PARKER CUETO PHONOGRAPH MECHANIC 01/26/16 Benzonatate* (Tessalon Perle*) 100 Mg Capsule, 100 MG PO Q8H Y for COUGH, #30 CAP Prov:PARKER CUETO PHONOGRAPH MECHANIC 01/26/16 Oseltamivir Phosphate* (Tamiflu*) 75 Mg Capsule, 75 MG PO BID for 5 Days, CAP Prov:PARKER CUETO PHONOGRAPH MECHANIC 01/26/16 Ibuprofen* (Motrin*) 800 Mg Tab, 800 MG PO Q6H Y for PAIN AND OR ELEVATED TEMP, #30 TAB Prov:PARKER CUETO PHONOGRAPH MECHANIC 01/26/16 Acetaminophen* (Acetaminophen*) 325 Mg Tablet, 325 MG PO Q4H Y for PAIN AND OR ELEVATED TEMP, #30 TAB Prov:KYRIE RODRIGUEZ DO 12/23/15 Ibuprofen* (Ibuprofen*) 800 Mg Tablet, 800 MG PO Q8, #20 TAB Prov:KYRIE RODRIGUEZ DO 12/23/15 Promethazine w/Codeine* (Phenergan w/Codeine* Syrup) 5 Ml Syrup, 5 ML PO QHS Y for COUGH, #120 ML 0 Refills Prov:BETH MURRELL PA-C 12/22/15 Guaifenesin-Dextromethorphan* (Robitussin* DM) 100MG/10MG/5ML Syrup, 5 ML PO Q6H Y for COUGH, #240 ML 0 Refills Prov:BETH MURRELL PA-C 12/22/15 Fluticasone Propionate* (Fluticasone Propionate* Nasal) 50 Mcg/[place] - 16 Gm [place].susp, 1 SPRAY NASAL BID, #1 BOTTLE 0 Refills TO EACH NOSTRIL Prov:BETH MURRELL PA-C 12/22/15 Amoxicillin-Clavulanate K* (Augmentin*) 875 Mg Tab, 875 MG PO BID, #14 TAB 0 Refills Prov:NYASIABETH PA-C 12/22/15 Loratadine (Loratadine) 5 Mg/5 Ml Solution, 10 MG PO DAILY, #30 ML 0 Refills Prov:NYASIABETH KERN 12/22/15 Lorazepam* (Ativan*) 0.5 Mg Tablet, 0.5 MG PO Q8 for 3 Days Prov:ENID DE LEON PA-C 09/07/15 Ibuprofen* (Ibuprofen*) 800 Mg Tab, 800 MG PO Q6H Y for PAIN, #20 TAB Prov:ENID DE LEON PA-C 09/07/15 Ibuprofen* (Motrin*) 800 Mg Tab, 800 MG PO Q6, #30 TAB Prov:TERESITA PANG PA-C 09/04/15 Allergies Allergies: Coded Allergies: hydrocodone (Verified Allergy, Mild, rash, 09/25/17) codeine (Verified Allergy, Unknown, 09/25/17) PMhx/Soc Medical and Surgical Hx: pt denies Medical Hx History of Surgery: Yes (CHOLECYSTECTOMY, tonsillectomy) Anesthesia Reaction: No Hx Neurological Disorder: No Hx Respiratory Disorders: No Hx Cardiac Disorders: No Hx Psychiatric Problems: No Hx Miscellaneous Medical Probl: No Hx Alcohol Use: No Hx Substance Use: No Hx Tobacco Use: No Smoking Status: Never smoker FmHx Family History: No coronary disease, No diabetes, No other Physical Exam Vitals Vital Signs Date Time Temp Pulse Resp B/P Pulse Ox O2 Delivery O2 Flow Rate FiO2 09/25/17 19:15 98.0 86 18 115/69 99 Physical Exam GENERAL: The patient is well developed and appropriate for usual state of health, in no apparent distress. CHEST: Clear to auscultation bilaterally. There are no rales, wheezes or rhonchi. HEART: Regular rate and rhythm. No murmurs, clicks, rubs or gallops. No S3 or S4. ABDOMEN: Soft, nontender and nondistended. Good bowel sounds. No rebound or guarding. No gross peritonitis. No gross organomegaly or masses. No Chery sign or McBurney point tenderness. BACK: No midline or flank tenderness. EXTREMITIES: Tenderness on palpation on the calcaneus of the right foot, no swelling noted, no deformity noted. Able to do full range of motion of the right ankle and bones of the right foot without any restriction. Equal pulses bilaterally. There is no peripheral clubbing, cyanosis or edema. No focal swelling or erythema. Full range of motion. Grossly neurovascularly intact. NEURO: Alert and oriented. Cranial nerves 2-12 intact. Motor strength in all 4 extremities with 5/5 strength. Sensation grossly intact. Normal speech and gait. SKIN: There is no apparent rash or petechia. The skin is warm and dry. HEMATOLOGIC AND LYMPHATIC: There is no evidence of excessive bruising or lymphedema. No gross cervical, axillary, or inguinal lymphadenopathy. Results 24 hrs PROCEDURE: XR Right Foot. CLINICAL INDICATION: Trauma. Right foot pain. TECHNIQUE: 3 views. Frontal, lateral, and oblique. COMPARISON: None. FINDINGS: There is no fracture or dislocation. The soft tissues are normal. Articular surfaces are intact. There is no lytic or blastic lesion. There is no radiopaque foreign body. IMPRESSION: 1. Normal images of the right foot. RPTAT: QQ .Aniket Omalley MD, MD Date Time Electronically viewed and signed by .Aniket Omalley MD, MD on 09/25/2017 21:21 .R/ CC: DICKSON BIRD PHONOGRAPH MECHANIC Procedures/MDM Medical Decision Making: Patient's pain is most likely consistent with a contusion or a sprain. There is no suspicion for neurovascular compromise. Patient has intact sensation and circulation of the affected extremity. There is low suspicion for septic arthritis. Patient does not have any fever. Radiology exams of the affected area does not show any fracture or dislocation. Disposition: Home. Patient is given prescription for ibuprofen for pain, Tramadol for severe pain. Patient was advised to elevate the affected area and apply ice on affected area. Patient was advised that if symptoms are worse, numbness, tingling, high fever, unable to move joint, worsening symptoms, to return to emergency department immediately. Otherwise, patient is advised to follow up with the primary care doctor in 5-7 days for reevaluation of symptoms. Disclaimer: Inadvertent spelling and grammatical errors are likely due to EHR/ dictation software use and do not reflect on the overall quality of patient care. Also, please note that the electronic time recorded on this note does not necessarily reflect the actual time of the patient encounter. Departure Diagnosis: Primary Impression: Foot pain Laterality: right Qualified Code: M79.671 - Right foot pain Condition: Stable Patient Instructions: Sprain Foot Additional Instructions: Patient is given prescription for ibuprofen for pain, Tramadol for severe pain. Patient was advised to elevate the affected area and apply ice on affected area. Patient was advised that if symptoms are worse, numbness, tingling, high fever, unable to move joint, worsening symptoms, to return to emergency department immediately. Otherwise, patient is advised to follow up with the primary care doctor in 5-7 days for reevaluation of symptoms. DICKSON BIRD NP Sep 25, 2017 20:44
--- NOTE | 2017-09-25 21:21 | RADRPT ---
PROCEDURE: XR Right Foot. CLINICAL INDICATION: Trauma. Right foot pain. TECHNIQUE: 3 views. Frontal, lateral, and oblique. COMPARISON: None. FINDINGS: There is no fracture or dislocation. The soft tissues are normal. Articular surfaces are intact. There is no lytic or blastic lesion. There is no radiopaque foreign body. IMPRESSION: 1. Normal images of the right foot. RPTAT: QQ .Bennett Omalley MD, MD Date Time Electronically viewed and signed by .Bennett Omalley MD, on 09/25/2017 21:21 .R/
[2017-09-25] MEDS ORDERED: IBUP-1542 PO (21:32)
[2017-09-25] MEDS ORDERED: TRAM50TA2 PO (21:32)
== END 2017-09-25 21:46 | disposition home or self-care (01) ==
LOC: FTE 18:38
DX: M79.671 Pain in right foot (principal)
CPT/HCPCS: 73630; Z7502

== ENCOUNTER 2017-11-09 20:39 | Emergency (ER) | payer MEDICAID ==
[~2017-11-09] VITALS: Ht 167.6 cm; Wt 98.1 kg
[2017-11-09 20:43] VITALS: Ht 167.6 cm; Wt 98.1 kg
[2017-11-09] MEDS ORDERED: PROCHLORPERAZINE 10 MG INJ IV STA (22:33)
[2017-11-09] MEDS ORDERED: HYDROmorphONE 1 MG/ML SYG IV STA (22:33)
[2017-11-09] MEDS ORDERED: DIPHENHYDRAMINE 50 MG INJ IV STA (22:33)
--- NOTE | 2017-11-09 23:35 | RADRPT ---
PROCEDURE: CT Brain without contrast. CLINICAL INDICATION: Headache TECHNIQUE: A CT of the brain was performed utilizing axial imaging from the skull base through the vertex without IV contrast. Multiplanar reformatted images were made. Images were reviewed on a [employer] workstation. The CTDIvol is 43.77 mGy and the DLP is 720.23 mGycm. One or more the following dose reduction techniques were utilized: Automated exposure control, adjus tment of the mA and / or kV according to patient's size, or use of iterative reconstruction techniqu e. DICOM images are available. COMPARISON: None FINDINGS: There is no intracranial hemorrhage, mass effect, or midline shift. No extra-axial fluid collection is seen. The ventricles and sulci are normal in size and configuration. The density of the brain is normal, and the biswas white matter differentiation appears well-preserved. The visualized paranasal sinuses and osseous structures are grossly unremarkable. IMPRESSION: 1. No evidence of acute intracranial pathology. 2. The brain is normal in appearance. RPTAT: HJES .Andres Stevens MD, MD Date Time Electronically viewed and signed by .Andres Stevens MD, MD on 11/09/2017 23:34 .S/
[2017-11-09] MEDS ORDERED: TRAM50TA2 PO (23:57)
[2017-11-09] MEDS ORDERED: IBUP800T25 PO (23:57)
--- NOTE | 2017-11-10 00:04 | ERD ---
ER Documentation Chief Complaint Chief Complaint headache, dizziness, neck pain, blurry vision x 2 days HPI This a 37-year-old female who is here for headache. She states she was here in July for the same complaints and did not have a CAT scan was sent home. The patient states that she has 4 days worth of a headache located in the frontal forehead that is pounding that is worse with movement, phonophobia and photophobia. She also states she has some blurry vision and vertigo sensation. No focal neurological complaints no visual or speech change. No fever or stiff neck. ROS All systems reviewed and are negative except as per history of present illness. Medications Home Meds Active Scripts Ibuprofen* (Motrin*) 800 Mg Tab, 800 MG PO Q6H Y for PAIN AND OR ELEVATED TEMP, #30 TAB Prov:SVITLANA SIMON DO 11/09/17 Tramadol HCl (Tramadol HCl) 50 Mg Tablet, 50 MG PO Q6, #20 TAB Prov:SVITLANA SIMON DO 11/09/17 Tramadol HCl (Tramadol HCl) 50 Mg Tablet, 50 MG PO Q6 for SEVERE PAIN LEVEL 7-10 , #20 TAB Prov:DICKSON BIRD AVIATION PROGRAM MANAGER 09/25/17 Ibuprofen* (Motrin*) 600 Mg Tab, 600 MG PO Q6H Y for PAIN AND OR ELEVATED TEMP, #30 TAB Prov:DICKSON BIRD AVIATION PROGRAM MANAGER 09/25/17 Naproxen* (Naprosyn*) 500 Mg Tablet, 500 MG PO BID Y for PAIN AND/OR INFLAMMATION, #30 TAB Prov:KEENAN GARDINER PA-C 09/10/17 Diphenhydramine Hcl* (Benadryl*) 50 Mg Cap, 50 MG PO QHS Y for INSOMNIA, #30 CAP Prov:KEENAN GARDINER PA-C 09/10/17 Tramadol HCl (Tramadol HCl) 50 Mg Tablet, 50 MG PO Q4 Y for PAIN, #20 TAB Prov:YULIANA CHRISTENSEN PA-C 07/26/17 Ibuprofen* (Motrin*) 800 Mg Tab, 800 MG PO Q6, #30 TAB Prov:YULIANA CHRISTENSEN PA-C 07/26/17 Ondansetron Hcl* (Zofran*) 4 Mg Tablet, 4 MG PO Q6H for NAUSEA AND/OR VOMITING, #10 TAB Prov:NAFISA GUERRERO NP 07/19/17 Famotidine* (Pepcid*) 20 Mg Tablet, 20 MG PO BID for 4 Days, TAB Prov:NAFISA GUERRERO NP 07/19/17 Ondansetron Hcl* (Zofran*) 4 Mg Tablet, 4 MG PO Q6H for NAUSEA AND/OR VOMITING, #30 TAB Prov:MARILIN MORALES PA-C 07/04/16 Acetaminophen* (Tylophen*) 500 Mg Capsule, 1 CAP PO Q6H Y for PAIN AND OR ELEVATED TEMP, #30 CAP Prov:MARILIN MORALES PA-C 07/04/16 Ibuprofen* (Motrin*) 600 Mg Tab, 600 MG PO Q6, #16 TAB Prov:ANIKET RYDER MD 07/01/16 Acetaminophen* (Tylophen*) 500 Mg Capsule, 1 CAP PO Q6H Y for PAIN AND OR ELEVATED TEMP, #20 CAP Prov:PARKER CUETO NP 05/28/16 Ibuprofen* (Motrin*) 600 Mg Tab, 600 MG PO Q6, #30 TAB Prov:LEO PAIGE PA-C 05/22/16 Sodium Chloride (Saline Nasal [place]) 45 Ml [place], 2 SPRAYS NASAL Q2H Y for NASAL CONGESTION, #1 BOTTLE Prov:PARKER CUETO NP 01/26/16 Benzonatate* (Tessalon Perle*) 100 Mg Capsule, 100 MG PO Q8H Y for COUGH, #30 CAP Prov:PARKER CUETO NP 01/26/16 Oseltamivir Phosphate* (Tamiflu*) 75 Mg Capsule, 75 MG PO BID for 5 Days, CAP Prov:PARKER CUETO NP 01/26/16 Ibuprofen* (Motrin*) 800 Mg Tab, 800 MG PO Q6H Y for PAIN AND OR ELEVATED TEMP, #30 TAB Prov:PARKER CUETO NP 01/26/16 Acetaminophen* (Acetaminophen*) 325 Mg Tablet, 325 MG PO Q4H Y for PAIN AND OR ELEVATED TEMP, #30 TAB Prov:KYRIE RODRIGUEZ DO 12/23/15 Ibuprofen* (Ibuprofen*) 800 Mg Tablet, 800 MG PO Q8, #20 TAB Prov:KYRIE RODRIGUEZ 12/23/15 Promethazine w/Codeine* (Phenergan w/Codeine* Syrup) 5 Ml Syrup, 5 ML PO QHS Y for COUGH, #120 ML 0 Refills Prov:BETH MURRELL PA-C 12/22/15 Guaifenesin-Dextromethorphan* (Robitussin* DM) 100MG/10MG/5ML Syrup, 5 ML PO Q6H Y for COUGH, #240 ML 0 Refills Prov:BETH MURRELL PA-C 12/22/15 Fluticasone Propionate* (Fluticasone Propionate* Nasal) 50 Mcg/[place] - 16 Gm [place].susp, 1 SPRAY NASAL BID, #1 BOTTLE 0 Refills TO EACH NOSTRIL Prov:BETH MURRELL PA-C 12/22/15 Amoxicillin-Clavulanate K* (Augmentin*) 875 Mg Tab, 875 MG PO BID, #14 TAB 0 Refills Prov:BETH MURRELL PA-C 12/22/15 Loratadine (Loratadine) 5 Mg/5 Ml Solution, 10 MG PO DAILY, #30 ML 0 Refills Prov:BETH MURRELL PA-C 12/22/15 Lorazepam* (Ativan*) 0.5 Mg Tablet, 0.5 MG PO Q8 for 3 Days Prov:ENID DE LEON PA-C 09/07/15 Ibuprofen* (Ibuprofen*) 800 Mg Tab, 800 MG PO Q6H Y for PAIN, #20 TAB Prov:ENID DE LEON PA-C 09/07/15 Ibuprofen* (Motrin*) 800 Mg Tab, 800 MG PO Q6, #30 TAB Prov:TERESITA PANG PA-C 09/04/15 Allergies Allergies: Coded Allergies: hydrocodone (Verified Allergy, Mild, rash, 09/25/17) codeine (Verified Allergy, Unknown, 09/25/17) PMhx/Soc History of Surgery: Yes (CHOLECYSTECTOMY, tonsillectomy) Anesthesia Reaction: No Hx Neurological Disorder: No Hx Respiratory Disorders: No Hx Cardiac Disorders: No Hx Psychiatric Problems: No Hx Miscellaneous Medical Probl: No Hx Alcohol Use: No Hx Substance Use: No Hx Tobacco Use: No Smoking Status: Never smoker FmHx Family History: No coronary disease Physical Exam Vitals Vital Signs Date Time Temp Pulse Resp B/P Pulse Ox O2 Delivery O2 Flow Rate FiO2 11/09/17 20:43 98.0 79 20 110/79 98 Physical Exam Const: Well-developed, well-nourished Head: Atraumatic, normocephalic Eyes: Normal Conjunctiva, PERRLA, EOMI, normal sclera, no nystagmus ENT: Normal External Ears, Nose and Mouth, moist mucus membranes. Neck: Full range of motion. No meningismus, no lymphadenopathy. Resp: Clear to auscultation bilaterally, no wheezing, rhonchi, rales Cardio: Regular rate and rhythm, no murmurs, S1 S2 present Abd: Soft, non tender x 4, non distended. Normal bowel sounds, no guarding or rebound, no pulsitile abdominal masses or bruits Skin: No petechiae or rashes, no ecchymosis , no maculopapular rash Back: No midline or flank tenderness Ext: No cyanosis, or edema, FROM x 4, normal inspection, neurovascularly intact x 4 Neur: Awake and alert, STR 5/5 x 4, sensation intact x 4, no focal findings, cerebellum intact Psych: Normal Mood and Affect Results 24 hrs Current Medications Medications (Trade) Dose Ordered Sig/Yeni Route PRN Reason Start Time Stop Time Status Last Admin Dose Admin Prochlorperazine (Compazine Inj) 10 mg ONCE STAT IV 11/09/17 22:33 11/09/17 22:36 DC 11/09/17 23:10 Hydromorphone HCl (Dilaudid) 1 mg ONCE STAT IV 11/09/17 22:33 11/09/17 22:36 DC 11/09/17 22:59 Diphenhydramine HCl (Benadryl) 25 mg ONCE STAT IV 11/09/17 22:33 11/09/17 22:36 DC 11/09/17 22:59 Procedures/MDM PROCEDURE: CT Brain without contrast. CLINICAL INDICATION: Headache TECHNIQUE: A CT of the brain was performed utilizing axial imaging from the skull base through the vertex without IV contrast. Multiplanar reformatted images were made. Images were reviewed on a PACS workstation. The CTDIvol is 43.77 mGy and the DLP is 720.23 mGycm. One or more the following dose reduction techniques were utilized: Automated exposure control, adjustment of the mA and / or kV according to patient's size, or use of iterative reconstruction technique. DICOM images are available. COMPARISON: None FINDINGS: There is no intracranial hemorrhage, mass effect, or midline shift. No extra- axial fluid collection is seen. The ventricles and sulci are normal in size and configuration. The density of the brain is normal, and the biswas white matter differentiation appears well-preserved. The visualized paranasal sinuses and osseous structures are grossly unremarkable. IMPRESSION: 1. No evidence of acute intracranial pathology. 2. The brain is normal in appearance. RPTAT: HJES .Andres Stevens MD, MD Date Time Electronically viewed and signed by .Andres Stevens MD, MD on 11/09/2017 23:34 .S/ CC: SVITLANA SIMON DO Patient is better after pain medication. Patient has migrainous type of pattern and headache history I reviewed with her headache triggers and will discharge home with Motrin and tramadol Departure Diagnosis: Primary Impression: Migraine Migraine type: unspecified Status migrainosus presence: without status migrainosus Intractability: not intractable Qualified Code: G43.909 - Migraine without status migrainosus, not intractable, unspecified migraine type Condition: Stable Patient Instructions: Headache, Migraine (Classical) SVITLANA SIMON DO Nov 10, 2017 00:04
[2017-11-10 00:30] VITALS: BP 138/73; PULSE 86; RESP 19; TEMP 98.2
== END 2017-11-10 00:30 | disposition home or self-care (01) ==
LOC: FTE 20:39
DX: G43.909 Migraine, unspecified, not intractable, without status migrainosus (principal)
CPT/HCPCS: 70450; 96374; 96375; J1170; J1200; Z7502

== ENCOUNTER 2017-11-27 01:04 | Emergency (ER) | END 2017-11-27 08:38 | disposition home or self-care (01) ==

== ENCOUNTER 2018-06-22 17:37 | Emergency (ER) | END 2018-06-22 21:14 | disposition home or self-care (01) ==

== ENCOUNTER 2018-08-03 18:16 | Emergency (ER) | END 2018-08-03 20:28 | disposition home or self-care (01) ==

== ENCOUNTER 2018-08-23 00:52 | Emergency (ER) | END 2018-08-23 05:45 | disposition home or self-care (01) ==

== ENCOUNTER 2019-05-16 23:27 | Emergency (ER) | payer MEDICAID ==
[~2019-05-16] VITALS: Ht 165.1 cm; Wt 96.8 kg
[~2019-05-16 23:27] MED LIST changes: +ACET325T33 PO; +BENZ-6 PO; -BENZ100C70 PO; +CLIN300C10 PO; +DICY10CA40 PO; +GUAI5SYR2 PO; +IBUP-1541 PO; +IBUP-1544 PO; +IBUP-1545 PO; +IBUP-1561 PO; -IBUP800T25 PO; +IBUP800T48 PO; +MECL12.574 PO; -NAPR-260 PO; +NAPR-985 PO; +ONDA4TAB14 PO; +ONDA8TAB14 PO; +OSEL75CA23 PO; -OSLT75C PO; -UDROBDM PO
[2019-05-16 23:31] VITALS: BP 132/86; PULSE 91; RESP 19; Ht 165.1 cm; Wt 96.8 kg
[2019-05-17] MEDS ORDERED: KETOROLAC 30 MG INJ IV STA (00:56)
--- NOTE | 2019-05-17 01:02 | ERD ---
ER Documentation Chief Complaint Chief Complaint C/O GENERALIZED RT SIDED BACK PAIN TODAY HPI Patient is a 38 years old female with no known PMHx presenting to the clinic for right mid back to right hip pain since yesterday. Patient states the pain came about suddenly and denies any trauma or injury. Patient states that the pain is constant that worsens with walking or positional movement. Patient denies taking any otc medication. Patient denies fever, chills, night sweats, abdominal pain, bloating, urinary symptoms. ROS All systems reviewed and are negative except as per history of present illness. Medications Home Meds Active Scripts Ciprofloxacin Hcl* (Ciprofloxacin Hcl*) 500 Mg Tablet, 500 MG PO BID for 5 Days, #10 TAB Prov:PRASHANT BARRIOS PA-C 05/17/19 Phenazopyridine Hcl* (Pyridium*) 200 Mg Tab, 200 MG PO TID PRN for URINARY PAIN, #6 TAB Prov:PRASHANT BARRIOS PA-C 05/17/19 Naproxen* (Naprosyn*) 500 Mg Tablet, 500 MG PO BID PRN for PAIN AND/OR INFLAMMATION, #30 TAB take with food Prov:LEO PAIGE PA-C 08/23/18 Clindamycin Hcl* (Clindamycin Hcl*) 300 Mg Capsule, 300 MG PO TID for 10 Days, CAP Prov:TYRA MARTINEZ MD 08/03/18 Acetaminophen* (Tylenol*) 325 Mg Tablet, 2 TAB PO Q6 PRN for PAIN AND OR ELEVATED TEMP, #20 TAB Prov:TYRA MARTINEZ MD 08/03/18 Ibuprofen* (Motrin*) 400 Mg Tab, 400 MG PO Q8, #30 TAB Prov:TYRA MARTINEZ MD 08/03/18 Ibuprofen* (Ibuprofen*) 400 Mg Tablet, 400 MG PO Q6H PRN for PAIN, #30 TAB Prov:YULIANA CHRISTENSEN PA-C 06/22/18 Meclizine Hcl* (Antivert*) 12.5 Mg Tab, 25 MG PO Q6H PRN for DIZZINESS, #30 TAB Prov:ENID DE LEON PA-C 06/22/18 Ondansetron (Ondansetron Odt) 4 Mg Tab.rapdis, 4 MG PO Q6H PRN for NAUSEA AND/OR VOMITING, #30 TAB Prov:ENID DE LEON PA-C 06/22/18 Dicyclomine HCl (Dicyclomine HCl) 10 Mg Capsule, 10 MG PO QID, #15 CAP Prov:CHRISTINE LIU PA-C 11/27/17 Ondansetron (Ondansetron Odt) 8 Mg Tab.rapdis, 8 MG PO Q6H PRN for NAUSEA AND/OR VOMITING, #10 TAB Prov:CHRISTINE LIU PA-C 11/27/17 Ibuprofen* (Motrin*) 800 Mg Tab, 800 MG PO Q6H PRN for PAIN AND OR ELEVATED TEMP, #30 TAB Prov:SVITLANA SIMON DO 11/09/17 Tramadol HCl (Tramadol HCl) 50 Mg Tablet, 50 MG PO Q6, #20 TAB Prov:SVITLANA SIMON DO 11/09/17 Tramadol HCl (Tramadol HCl) 50 Mg Tablet, 50 MG PO Q6 for SEVERE PAIN LEVEL 7- 10, #20 TAB Prov:DICKSON BIRD NP 09/25/17 Ibuprofen* (Motrin*) 600 Mg Tab, 600 MG PO Q6H PRN for PAIN AND OR ELEVATED TEMP, #30 TAB Prov:DICKSON BIRD NP 09/25/17 Naproxen* (Naprosyn*) 500 Mg Tablet, 500 MG PO BID PRN for PAIN AND/OR INFLAMMATION, #30 TAB Prov:KEENAN GARDINER PA-C 09/10/17 Diphenhydramine Hcl* (Benadryl*) 50 Mg Cap, 50 MG PO QHS PRN for INSOMNIA, #30 CAP Prov:KEENAN GARDINER PA-C 09/10/17 Tramadol HCl (Tramadol HCl) 50 Mg Tablet, 50 MG PO Q4 PRN for PAIN, #20 TAB Prov:YULIANA CHRISTENSEN PA-C 07/26/17 Ibuprofen* (Motrin*) 800 Mg Tab, 800 MG PO Q6, #30 TAB Prov:YULIANA CHRISTENSEN PA-C 07/26/17 Ondansetron Hcl* (Zofran*) 4 Mg Tablet, 4 MG PO Q6H for NAUSEA AND/OR VOMITING, #10 TAB Prov:NAFISA GUERRERO NP 07/19/17 Famotidine* (Pepcid*) 20 Mg Tablet, 20 MG PO BID for 4 Days, TAB Prov:NAFISA GUERRERO NP 07/19/17 Ondansetron Hcl* (Zofran*) 4 Mg Tablet, 4 MG PO Q6H for NAUSEA AND/OR VOMITING, #30 TAB Prov:MARILIN MORALES-C 07/04/16 Acetaminophen* (Tylophen*) 500 Mg Capsule, 1 CAP PO Q6H PRN for PAIN AND OR ELEVATED TEMP, #30 CAP Prov:MARILIN MORALES-C 07/04/16 Ibuprofen* (Motrin*) 600 Mg Tab, 600 MG PO Q6, #16 TAB Prov:ANIKET RYDER MD 07/01/16 Acetaminophen* (Tylophen*) 500 Mg Capsule, 1 CAP PO Q6H PRN for PAIN AND OR ELEVATED TEMP, #20 CAP Prov:PARKER CUETO NP 05/28/16 Ibuprofen* (Motrin*) 600 Mg Tab, 600 MG PO Q6, #30 TAB Prov:LEO PAIGE PA-C 05/22/16 Sodium Chloride (Saline Nasal [place]) 45 Ml [place], 2 SPRAYS NASAL Q2H PRN for NASAL CONGESTION, #1 BOTTLE Prov:PARKER CUETO NP 01/26/16 Benzonatate* (Tessalon Perle*) 100 Mg Capsule, 100 MG PO Q8H PRN for COUGH, #30 CAP Prov:PARKER CUETO NP 01/26/16 Oseltamivir Phosphate* (Tamiflu*) 75 Mg Capsule, 75 MG PO BID for 5 Days, CAP Prov:PARKER CUETO NP 01/26/16 Ibuprofen* (Motrin*) 800 Mg Tab, 800 MG PO Q6H PRN for PAIN AND OR ELEVATED TEMP, #30 TAB Prov:PARKER CUETO NP 01/26/16 Acetaminophen* (Acetaminophen*) 325 Mg Tablet, 325 MG PO Q4H PRN for PAIN AND OR ELEVATED TEMP, #30 TAB Prov:KYRIE RODRIGUEZ DO 12/23/15 Ibuprofen* (Ibuprofen*) 800 Mg Tablet, 800 MG PO Q8, #20 TAB Prov:KYRIE RODRIGUEZ DO 12/23/15 Promethazine w/Codeine* (Phenergan w/Codeine* Syrup) 5 Ml Syrup, 5 ML PO QHS PRN for COUGH, #120 ML 0 Refills Prov:BETH MURRELL PA-C 12/22/15 Guaifenesin-Dextromethorphan* (Robitussin* DM) 100MG/10MG/5ML Syrup, 5 ML PO Q6H PRN for COUGH, #240 ML 0 Refills Prov:BETH MURRELL PA-C 12/22/15 Fluticasone Propionate* (Fluticasone Propionate* Nasal) 50 Mcg/[place] - 16 Gm [place].susp, 1 SPRAY NASAL BID, #1 BOTTLE 0 Refills TO EACH NOSTRIL Prov:BETH MURRELL PA-C 12/22/15 Amoxicillin-Clavulanate K* (Augmentin*) 875 Mg Tab, 875 MG PO BID, #14 TAB 0 Refills Prov:BETH MURRELL PA-C 12/22/15 Loratadine (Loratadine) 5 Mg/5 Ml Solution, 10 MG PO DAILY, #30 ML 0 Refills Prov:BETH MURRELL PA-C 12/22/15 Lorazepam* (Ativan*) 0.5 Mg Tablet, 0.5 MG PO Q8 for 3 Days Prov:ENID DE LEON PA-C 09/07/15 Ibuprofen* (Ibuprofen*) 800 Mg Tab, 800 MG PO Q6H PRN for PAIN, #20 TAB Prov:ENID DE LEON PA-C 09/07/15 Ibuprofen* (Motrin*) 800 Mg Tab, 800 MG PO Q6, #30 TAB Prov:TERESITA PANG PA-C 09/04/15 Allergies Allergies: Coded Allergies: hydrocodone (Verified Allergy, Mild, rash, 06/22/18) codeine (Verified Allergy, Unknown, 06/22/18) PMhx/Soc Medical and Surgical Hx: pt denies Medical Hx, pt denies Surgical Hx History of Surgery: Yes (CHOLECYSTECTOMY, tonsillectomy) Anesthesia Reaction: No Hx Neurological Disorder: No Hx Respiratory Disorders: No Hx Cardiac Disorders: No Hx Psychiatric Problems: No Hx Miscellaneous Medical Probl: No Hx Alcohol Use: No Hx Substance Use: No Hx Tobacco Use: No Physical Exam Vitals Vital Signs Date Temp Pulse Resp B/P (MAP) Pulse Ox O2 O2 Flow FiO2 Time Delivery Rate 05/16/19 99.2 91 19 132/86 100 23:31 (101) Physical Exam Const: In some mild distress holding her right mid back with her right hand. Head: Atraumatic Eyes: Normal Conjunctiva Resp: Clear to auscultation bilaterally Cardio: Regular rate and rhythm, no murmurs Abd: Soft, non tender, non distended. Normal bowel sounds Skin: No petechiae or rashes Back: No gross deformity. Right CVAT. Ext: No cyanosis, or edema Neur: Awake and alert Psych: Normal Mood and Affect Result Diagram: 05/17/197 05/17/19126 Results 24 hrs Laboratory Tests Test 05/17/19 01:18 05/17/19 01:27 POC Beta HCG, Qualitative NEGATIVE White Blood Count 15.9 10^3/ul Red Blood Count 4.48 10^6/ul Hemoglobin 13.2 g/dl Hematocrit 40.8 % Mean Corpuscular Volume 91.1 fl Mean Corpuscular Hemoglobin 29.5 pg Mean Corpuscular Hemoglobin Concent 32.4 g/dl Red Cell Distribution Width 13.7 % Platelet Count 287 10^3/UL Mean Platelet Volume 10.3 fl Immature Granulocytes % 0.400 % Neutrophils % 70.3 % Lymphocytes % 20.4 % Monocytes % 7.8 % Eosinophils % 0.8 % Basophils % 0.3 % Nucleated Red Blood Cells % 0.0 /100WBC Immature Granulocytes # 0.070 10^3/ul Neutrophils # 11.1 10^3/ul Lymphocytes # 3.2 10^3/ul Monocytes # 1.2 10^3/ul Eosinophils # 0.1 10^3/ul Basophils # 0.1 10^3/ul Nucleated Red Blood Cells # 0.0 10^3/ul Urine Color YELLOW Urine Clarity CLOUDY Urine pH 7.0 Urine Specific [place] 1.018 Urine Ketones NEGATIVE mg/dL Urine Nitrite NEGATIVE mg/dL Urine Bilirubin NEGATIVE mg/dL Urine Urobilinogen NEGATIVE mg/dL Urine Leukocyte Esterase NEGATIVE Elle/ul Urine Microscopic RBC 3 /HPF Urine Microscopic WBC 2 /HPF Urine Squamous Epithelial Cells FEW /HPF Urine Bacteria FEW /HPF Urine Hemoglobin 1+ mg/dL Urine Glucose NEGATIVE mg/dL Urine Total Protein NEGATIVE mg/dl Sodium Level 141 mmol/L Potassium Level 4.4 mmol/L Chloride Level 105 mmol/L Carbon Dioxide Level 29 mmol/L Anion Gap 7 Blood Urea Nitrogen 20 mg/dl Creatinine 0.74 mg/dl Est Glomerular Filtrat Rate mL/min > 60 mL/min Glucose Level 93 mg/dl Calcium Level 9.8 mg/dl Total Bilirubin 0.4 mg/dl Direct Bilirubin 0.00 mg/dl Indirect Bilirubin 0.4 mg/dl Aspartate Amino Transf (AST/SGOT) 18 IU/L Alanine Aminotransferase (ALT/SGPT) 23 IU/L Alkaline Phosphatase 93 IU/L Total Protein 7.6 g/dl Albumin 4.4 g/dl Globulin 3.20 g/dl Albumin/Globulin Ratio 1.37 Current Medications Medications Dose Sig/Yeni Start Time Status Last (Trade) Ordered Route PRN Stop Time Admin Dose Reason Admin Ketorolac 30 mg ONCE STAT 05/17/19 DC 05/17/19 Tromethamine IV 00:56 01:34 (Toradol) 05/17/19 00:58 Procedures/MDM Patient was seen and evaluated for right mid back pain. Urinalysis revealed hemoglobin and bacteria which is most significant for UTI. CBC showed Leukocytosis. Renal ultrasound is unremarkable. Low suspicion for pyelonephritis, hydronephrosis, sepsis, colitis, appendicitis, cholecystitis, pancreatitis. Patient is stable and ready for discharge. Departure Diagnosis: Primary Impression: UTI (urinary tract infection) Urinary tract infection type: site unspecified Hematuria presence: with hematuria Qualified Codes: N39.0 - Urinary tract infection, site not specified; R31.9 - Hematuria, unspecified Condition: Stable Patient Instructions: Understanding Urinary Tract Infections (UTIs) Referrals: [facility] Additional Instructions: Paciente aconseja volver a Departamento de urgencias inmediatamente para sntomas nuevos o que empeoran . Paciente aconseja posteriores con el PCP en 2-3 ruiz . Paciente verbaliza la comprehensin y est de acuerdo con el tratamiento y el curso de accin. Si el paciente no tiene ninguna de atencin primaria pueden seguir con [facility] [address] [place] [address] o [facility] [address] [place] [address] PRASHANT BARRIOS PA-C May 17, 2019 01:02
[2019-05-17] MEDS ORDERED: PHEN-538 PO (02:09)
[2019-05-17] MEDS ORDERED: CIPR500T4 PO (02:09)
== END 2019-05-17 04:00 | disposition home or self-care (01) ==
LOC: FTE 23:27
DX: N39.0 Urinary tract infection, site not specified (principal)
CPT/HCPCS: 76775; 80053; 81001; 81025; 85025; 96374; Z7502